=== PATIENT | male | born 1965 | race Caucasian/White ===

== ENCOUNTER 2021-01-13 08:47 | Emergency (ER) | payer OTHER, SELFPAY ==
[2021-01-13 08:49] VITALS: BP 120/78; PULSE 71; RESP 18; TEMP 36.6; O2SAT 98; BMI 35.2
--- NOTE | 2021-01-13 09:16 | RAD_ITS ---
INDICATION: covid 19 cough EXAMINATION/TECHNIQUE: X-RAY - XR Chest 1 View COMPARISON: None. FINDINGS: LINES/DEVICES: None. Cardia mediastinal silhouette is within normal limits. There are faint hazy opacities in the bilateral mid to lower lungs predominantly in a central and perihilar distribution. No pleural effusions or pneumothorax. Osseous structures are grossly intact. RAD/Chest 1 View (Portable) IMPRESSION: Findings suggestive of multifocal atelectasis and infectious/inflammatory etiology and can be seen in atypical pneumonia such as COVID pneumonia Electronically Signed: Forrest Perdue MD at 9:38 EST Tel , Service support ,
--- NOTE | 2021-01-13 09:18 | ED.VIS.DYS ---
HPI History of Present Illness Chief Complaint: Shortness of Breath Informant: patient Narrative Narrative: 55-year-old male presenting on day 9 of COVID-19. He states that this morning is the worst day yet. He notes cough fever body aches rhinorrhea. He states that he is concerned about the development of pneumonia. He was seen at urgent care a couple days ago and was prescribed doxycycline. PFSH PFSH Medical History no medical history no medical history Home Medications dexamethasone 6 mg PO DAILY #5 tab 01/13/21 [Rx Last Taken Unknown] Allergy/AdvReac Type Severity Reaction Status Date / Time No Known Allergies Allergy Verified 01/13/21 08:52 Surgical History no surgical history no surgical history Social History (Updated 01/13/21 @ 09:[address] Jersey Damon, DO) current gender identity: male Smoking Status: Never smoker ROS ROS ED Constitutional Constitutional ED: Reports chills, fever(s) and sweats; Denies weight loss Eyes Eyes: Denies change in vision or diplopia ENT ENT ED: Reports rhinorrhea; Denies ear pain or sore throat Cardiovascular Cardiovascular: Denies chest pain, orthopnea, palpitations or racing heartbeat Respiratory/Chest Respiratory/Chest: Reports cough, dyspnea and dyspnea on exertion; Denies orthopnea Gastrointestinal Gastrointestinal: Denies abdominal pain, diarrhea, nausea or vomiting Genitourinary Genitourinary ED: Denies dysuria, hematuria or urinary frequency Musculoskeletal Musculoskeletal: Reports myalgias; Denies arthralgias Integumentary Denies abscess or rash Neurologic Neurologic: Reports headache(s); Denies weakness Psychiatric Psychiatric: Denies anxiety, depression, suicidal ideation or suicidal thoughts Endocrine Endocrinology: Denies polydipsia, polyphagia or polyuria Allergic/Immunologic Allergic/Immunologic ED: Denies mouth swelling, tongue swelling or urticaria EXAM Physical Exam Const Vital Signs: 01/13/21 08:49 Temperature 97.9 F Temperature Source Temporal Pulse Rate 71 Respiratory Rate 18 Blood Pressure 120/78 Blood Pressure Mean 92 Pulse Ox 98 Oxygen Delivery Method Room Air Positive well nourished and well developed General Appearance ED: well developed HEENT Reports normocephalic, head/scalp atraumatic, TM's clear and moist mucous membranes atraumatic Tympanic Membrane ED: Yes TM's clear Eyes PERRL and EOMs intact bilaterally Neck no lymphadenopathy, supple and no JVD Resp normal respiratory effort Auscultation: wheezes expiratory wheezes Cardio regular rate, regular rhythm and no murmurs GI normal to inspection, nondistended, normoactive bowel sounds and non-tender Palpation: soft Back/Spine no CVA tenderness and normal ROM Extremity normal to inspection General Extremety ED: Negative for edema General Extremity: Negative for edema Neuro oriented x3 and CN's II-XII intact bilaterally Sensorium / Orientation: alert Motor Exam: strength 5/5 throughout Psych mental status grossly normal Mood & Affect: Negative for depressed or tearful Skin no rashes or lesions noted and no wounds MDM MDM MDM Narrative Medical decision making narrative: I interpretation of the chest x-ray are subtle opacities but no focal consolidations. Normal mediastinal silhouette. Patient was given instructions on albuterol MDI with a spacer. He will also receive a prescription for dexamethasone. Patient to monitor his breathing return if worsening or concerns Radiography Diagnostic Testing: Clinical Impression(s) from Imaging Studies Chest X-Ray 01/13/21 09:16 IMPRESSION: Findings suggestive of multifocal atelectasis and infectious/inflammatory etiology and can be seen in atypical pneumonia such as COVID pneumonia Electronically Signed: Forrest Perdue MD at 9:38 EST Tel , Service support , Discharge Plan Triage Chief Complaint: Shortness of Breath ED Provider: Jersey Damon Dx/Rx/DC Orders Clinical Impression: COVID-19, Acute dyspnea Instructions: Coronavirus Disease 2019 (COVID-19): Caring for Yourself or Others Prescriptions: New dexamethasone 6 MG tablet 6 mg PO DAILY Qty: 5 RF: 0 Primary Care Provider: Hema Messina Referrals: Hema Messina MD [Primary Care Provider] - As Needed Activity Restrictions/Additional Instructions: Use the albuterol inhaler at least 2 puffs every 4 hours. Dexamethasone is 6 mg daily for 5 days. Monitor your breathing. Return if worsening or concerns Disposition Disposition: Home, Self Care
[2021-01-13] MEDS: INHALER, ASSIST DEVICES 1 EACH SPACER INHALATION (09:25)
[2021-01-13 09:58] VITALS: PULSE 76; RESP 18; O2SAT 97
== END 2021-01-13 10:00 | disposition home or self-care (01) ==
PROVIDERS: Emergency Provider Emergency Medicine; PCP Family Medicine
DX: U07.1 COVID-19 (principal); R06.00 Dyspnea, unspecified
CPT/HCPCS: 71045; 94640; 99283